=== PATIENT | female | born 1955 | race Caucasian/White ===

== ENCOUNTER → 2022-02-24 13:40 | Outpatient (CLI) | payer OTHER, MEDICARE, SELFPAY | PROVIDERS: Visit Provider Nurse Practitioner Family | DX: S81.801A Unspecified open wound, right lower leg, initial encounter (principal); L08.9 Local infection of the skin and subcutaneous tissue, unspecified; L53.9 Erythematous condition, unspecified; M79.604 Pain in right leg | CPT/HCPCS: 11042; 11045; 87070; 87075; 87077; 87186; 87205; 99204; 99213 ==